=== PATIENT | female | born 1990 | race Caucasian/White ===

== ENCOUNTER 2025-04-24 07:32 | Emergency (ER) | payer MEDICAID ==
[~2025-04-24] VITALS: Ht 167.6 cm; Wt 89.2 kg
[2025-04-24 08:15] LABS: MEAN PLATELET VOLUME 9.6 FL (7.4-10.4); RED CELL DISTRIBUTION WIDTH 16.9 % (11.5-14.5)
--- NOTE | 2025-04-24 08:30 | Physician Documentation ---
History of Present Illness ~ Chief Complaint: Complications Stated Complaint: COMPLICATIONS Time Seen by MD: 07:44 Primary Medical Doctor: none Source: patient (6) Mode of Arrival: POV HPI Patient comes in for evaluation of vaginal bleeding. She reports her last normal menstrual period was on February 24, and about a week and a half later she had two positive home tests. Patient is . She reports that last night she began to have some spotting, and a slightly heavier bleeding today which is not quite as heavy as a normal period for her. She also has some mild cramping low abdominal pain. Patient is new to the area and does not have care lined up. Last Menstrual Period: Feb 24, 2025 Medication Reconciliation Allergies: Coded Allergies: No Known Allergies (Unverified , 04/24/25) Past Medical History Past Medical History: No Pertinent History Last Menstrual Period: Feb 24, 2025 Smoking Status: Never smoker Alcohol Use: None Drug Use: none Review of Systems All Other Systems at this time: Reviewed and Negative Physical Exam Physical Exam Vital Signs: Temperature: 98.0, Source: Oral, Heart Rate: 77, Respiratory Rate: 18, BP: 124/50, Pulse Oximetry: 100, Weight: 89.200 Oxygen Flow Rate: 0 Physical Exam General: Pt is awake, alert, oriented x4 in no acute distress and well appearing. Head: Normocephalic and atraumatic. Eyes: Conjunctiva normal. ENT: Mucous membranes moist. Neck: Supple. Chest: Clear to auscultation bilaterally, without rales, rhonchi, or wheezes. There is no accessory muscle use or retractions. Cardiac: Regular rate and rhythm without murmurs, gallops or rubs. Palpation of the chest wall is normal. Abd: Soft, nondistended, slightly tender in the low abdomen, with normoactive bowel sounds. No guarding or rebound. Pelvic: Os slightly open. Clots and what appears to be tissue and possibly a sac, sent to pathology for analysis. No active significant bleeding. Extremities: Within normal limits without cyanosis, clubbing, or edema. Skin: Bruni, warm and dry with no significant rash appreciated. Neuro: Cranial nerves II-XII grossly intact. The gait is normal. Progress Results/Orders Results/Orders Orders - FAISAL CONLEY MD Ultrasound Ob (04/24/25 ) Pelvic Set Up (04/24/25 08:30) Cytology Needed (04/24/25 09:12) Ultrasound Pelvis W/Orwo Dplx (04/24/25 09:39) Completed Orders - FAISAL CONLEY MD Cbc/Diff (04/24/25 07:44) Hcg Serum Qt (04/24/25 07:44) Abo/Rh (04/24/25 07:44) Ultrasound Pelvis W/Orwo Dplx (04/24/25 09:39) Vital Signs 04/24/25 04/24/25 04/24/25 04/24/25 07:37 07:52 10:13 12:01 Temp 98.0 98.5 Pulse 77 86 92 Resp 16 18 16 18 B/P (MAP) 124/50 126/79 (95) 126/79 Pulse Ox 100 99 100 O2 Flow Rate 0 0 Laboratory Tests Test 04/24/25 07:59 04/24/25 09:44 White Blood Count 6.0 Red Blood Count 4.86 Hemoglobin 11.5 L Hematocrit 35.3 Mean Corpuscular Volume 72.6 L Mean Corpuscular Hemoglobin 23.6 L Mean Corpuscular Hemoglobin Concent 32.5 L Red Cell Distribution Width 16.9 H Platelet Count 214 Mean Platelet Volume 9.6 Neutrophils (%) (Auto) 61.6 Lymphocytes (%) (Auto) 28.9 Monocytes (%) (Auto) 7.2 Eosinophils (%) (Auto) 1.6 Basophils (%) (Auto) 0.7 Neutrophils # (Auto) 3.7 Lymphocytes # (Auto) 1.7 Monocytes # (Auto) 0.4 Eosinophils # (Auto) 0.1 Basophils # (Auto) 0.0 CBC Comment HCG Beta Subunit 10562 Re-Evaluation Additional Notes Patient is feeling improved, reports that her bleeding has slowed and her abdominal pain has resolved. technical support internship tells me that he sees an empty uterus with heterogeneity, cervix is closed, adnexae look normal. Medical Decision Making Additional information obtaine: old records Additional Comment Patient presenting with vaginal bleeding, history of positive test. Pelvic examination showed an open os with products of conception, which were sent for pathology. Patient's symptoms resolved after passage of the POC, and subsequent pelvic ultrasound showing no evidence of IUP, and cervix closed. There is no evidence for adnexal mass or [place] [address], and she likely has a completed spontaneous . I have explained all of this to the patient in [place]. She understands that she needs to go in follow-up in the next 2-3 days for a repeat HCG to ensure that it goes to 0. Patient encouraged to follow up with car rental sales assistant to the emergency department as well. We discussed at length the signs and symptoms and degree of bleeding to which she would need to return, and she understands clearly. Departure Time of Disposition: 11:31 Disposition: 01 HOME / SELF CARE / HOMELESS Impression: Primary Impression: Vaginal bleeding in Condition: Stable Discharge Instructions: Miscarriage Additional Instructions: Lo siento, es probable que contreras perdido el embarazo. Por favor vaya a un "Urgent Care" o Urgencias in 3-4 arredondo para chequeo y para chequear el nivel de hormona de embarazo. Hoy fue 17,803, y debe bajar a 0 si contreras perdido el embarazo. Regrese en seguida a Urgencias ([facility], or nosotros) si esta empapando un trapo en menos de 30minutos y sigue asi por 3 horas. O si se desmaya o tiene otros problemas. Please go to an urgent Care or to emergency in 3-4 days for a recheck, and to recheck your hormone level, hCG. Today's level was [address], and it should go down to 0 if you have in fact lost this . Go immediately to an emergency department if you are soaking a full-sized pad in less than 30 minutes and continues like that for 3 hours. Also return if you are feeling faint or have any other concerns. Referrals: NO PRIMARY CARE PROVIDER (PCP) Education Educated: Patient, Family Educated regarding: diagnosis, treatment Signature Scribe Signature: Attestation: FAISAL CONLEY MD Apr 24, 2025 08:30
[2025-04-24 10:13] VITALS: TEMP 98.5
--- NOTE | 2025-04-24 11:15 | RADIOLOGY REPORT ---
US ULTRASOUND PELVIS W/ORWO DPLX HISTORY: , vaginal bleed COMPARISON: None TECHNIQUE: Transabdominal and transvaginal images with color and spectral doppler were obtained of the pelvis and ovaries. FINDINGS: Uterus: - Measures 7.7 x 6.1 x 4.7 cm in length. - Echogenicity: Normal - Mass lesions: None - Endometrial stripe: 10.5 mm - Cervix: Normal. Right ovary: - Measures 2.6 x 1.6 x 2.0 cm - Vascularity: Normal flow on Doppler images. - Mass lesions: None Left ovary: - Measures 3.0 x 1.7 x 2.4 cm - Vascularity: Normal flow on Doppler images. - Mass lesions: None Adnexal masses: None Free fluid: None Other: None IMPRESSION: Normal sonographic findings of the uterus and bilateral ovaries. No intra- uterine is visualized. Consider follow up beta HCG and pelvic US.
[2025-04-24 12:01] VITALS: BP 126/79; PULSE 92; RESP 18; O2SAT 100
--- NOTE | 2025-04-27 17:45 | PATHOLOGY REPORT ---
[facility] [address] [place] [address] SURGICAL PATHOLOGY REPORT CaseNumber: [id number] Surgeon:Pam Seay M.D. CLINICAL INFORMATION CLINICAL INFORMATION: Vaginal bleed. Hc, 803. LNMP 02/24/25. DIAGNOSIS DIAGNOSIS: UTERUS, UTERINE CONTENTS; DILATATION AND CURETTA - DECIDUA AND CHORIONIC VILLI PRESENT. - CHORIONIC VILLI ARE EDEMATOUS AND VIABLE APPEARING. COMMENT NOTE: Block A1 will be sent for "rule out" gestational trophoblastic disease testing and a separate report should follow. MICROSCOPIC DESCRIPTION MICROSCOPIC DESCRIPTION: Two slides are examined. Present are decidua, chorionic villi, and membranes. The villi are edematous but there is polar trophoblasts but no circumferential trophoblastic proliferation. The villi appear viable. There is cistern formation. There is a limited degenerative tissue focus suggestive of degenerating embryonic tissue. (st) GROSS DESCRIPTION GROSS DESCRIPTION: Received in a container of formalin labeled with the patient's name, number, and "vaginal" is a 4 cm aggregate of irregularly shaped pieces of pink-mancilla to red-brown tissue. There are no hydropic villi present. There are no parts identified. Reinforcing Iron Worker Helper sections are submitted as A1-A2. The time at which the specimen was removed was not provided. The time at which the specimen was placed in formalin was not provided. Electronically signed by: Edgar Hilario M.D. 04/27/2025 5:19:00 PM
== END 2025-04-24 12:03 | disposition home or self-care (01) ==
LOC: ER 07:33
DX: O46.91 Antepartum hemorrhage, unspecified, first trimester (principal); Z3A.01 Less than 8 weeks gestation of pregnancy
CPT/HCPCS: 36415; 76801; 76817; 76830; 84702; 85025; 86900; 86901; 93976; 99284; A6449